=== PATIENT | male | born 1960 | race Two or more races ===

== ENCOUNTER 2016-07-18 11:56 | Emergency (ER) | payer OTHER ==
[2016-07-18] MEDS ORDERED: CEFTRIAXONE SODIUM 1 G VIAL ONE (12:46)
--- NOTE | 2016-07-18 13:58 | US ---
EXTREMITY LTD NON VASC UPPER L HISTORY: Puncture wound 3 days ago along dorsal aspect of hand proximal to the fourth MCP joint. Question of retained foreign body or abscess. COMPARISONS: None FINDINGS: Multiple grayscale and color flow images during soft tissue ultrasound are obtained in the area of concern. Mild edema is scattered throughout the soft tissues. There is a tiny anechoic slip of fluid measuring 0.3 x 0.1 x 0.3 cm. Findings likely relate to post traumatic seroma or hematoma. No focal, drainable fluid collection is otherwise noted. The limited evaluation of the ligamentous and tendinous structures in the region are unremarkable. IMPRESSION: Scattered edema with a tiny 3 mm area of fluid along the dorsal aspect of the hand just proximal to the MCP joint. No focal, drainable collection. No evidence of foreign body. Findings were called to Dr. Burger at approximately 1353 hours on 07/18/2016.
== END 2016-07-18 14:08 | disposition home or self-care (01) ==
LOC: ED 11:56
DX: L03.114 Cellulitis of left upper limb (principal); F17.210 Nicotine dependence, cigarettes, uncomplicated; W45.8XXA Other foreign body or object entering through skin, initial encounter; W22.8XXA Striking against or struck by other objects, initial encounter; Y93.H1 Activity, digging, shoveling and raking; Y92.89 Other specified places as the place of occurrence of the external cause; Y99.0 Civilian activity done for income or pay
CPT/HCPCS: 76882; 99283 ×2; 96372; J0696